=== PATIENT | female | born 1990 | race Hispanic/Latino ===

== ENCOUNTER 2024-02-01 18:19 | Emergency (ER) | payer OTHER ==
[~2024-02-01] VITALS: Ht 170.2 cm; Wt 132.0 kg
[2024-02-01] MEDS: KETOROLAC 15MG/ML VIAL (15MG/ML) IV ONE (20:04)
[2024-02-01 20:29] LABS: BASOPHILS # (AUTO) 0.03 K/uL (0.00-0.20); BASOPHILS % (AUTO) 0.3 % (0.0-5.0); EOSINOPHILS # (AUTO) 0.04 K/uL (0.00-0.70); EOSINOPHILS % (AUTO) 0.4 % (0.0-8.0); HEMATOCRIT 40.2 % (36-48); IMMATURE GRANULOCYTE ABSOLUTE 0.03 K/uL (0-1); LYMPHOCYTES % (AUTO) 18.5 % (21.0-51.0); MEAN CORPUSCULAR HEMOGLOBIN 28.2 pg (27.0-33.0); MEAN CORPUSCULAR HGB CONC 33.8 g/dL (32.0-36.0); MEAN CORPUSCULAR VOLUME 83.4 fL (79-99); MONOCYTES # (AUTO) 0.9 K/uL (0.1-1.0); MONOCYTES % (AUTO) 8.1 % (3.0-13.0); NEUTROPHILS # (AUTO) 7.8 K/uL (1.8-7.7); NEUTROPHILS % (AUTO) 72.4 % (40.0-77.0); PLATELET COUNT (AUTO) 378 K/uL (130-400); RED BLOOD CELL COUNT(AUTO) 4.82 MIL/uL (4.00-5.50); RED CELL DISTRIBUTION WIDTH 12.9 % (11.0-15.5); WHITE BLOOD COUNT (AUTO) 10.8 K/uL (4.8-10.8)
[2024-02-01 20:52] LABS: CREATININE 0.7 mg/dL (0.5-1.0)
[2024-02-01] MEDS ORDERED: IOHEXOL-350 75 ML VIAL IV ONE (21:43)
[2024-02-01] MEDS ORDERED: KETO10TA2 PO (22:56)
[2024-02-01] MEDS: HYDROCODONE/ACETAMINOPHEN 10/325 MG TAB PO ONE (23:01)
[2024-02-01 23:06] VITALS: BP 123/84; PULSE 93; RESP 18; O2SAT 99
== END 2024-02-01 23:06 | disposition home or self-care (01) ==
LOC: EDH 18:19
DX: L02.31 Cutaneous abscess of buttock (principal); E11.9 Type 2 diabetes mellitus without complications
CPT/HCPCS: 99285; 96374; 72193; 80048; 84703; 85025; 83605; 36415; 84145; J1885; Q9967

== ENCOUNTER 2025-01-12 02:52 | Observation (INO) | payer OTHER ==
[~2025-01-12] VITALS: Ht 170.2 cm; Wt 141.1 kg
[~2025-01-12 02:52] MED LIST: KETO10TA2 PO
--- NOTE | 2025-01-12 03:05 | ERN ---
ED Note History of Present Illness Stated Complaint: HIGH BLOOD SUGAR ONE WEEK AGO Chief Complaint: Hyperglycemia Time Seen by MD: 03:01 Time Seen by Midlevel: 03:01 Dictation: The patient is a 34-year-old female with a history of diabetes on rybelsus noncompliant for the last two months who presents to the emergency department with complaints of hyperglycemia. Patient reports she checked her glucose a week ago and was 500. Reports some nausea but no vomiting. Reports nonbloody diarrhea. No other complaints reported. Allergies: Coded Allergies: No Known Drug Allergies (Unverified Allergy, Unknown, 02/01/24) Home Meds Active Scripts Ketorolac Tromethamine (Ketorolac Tromethamine) 10 Mg Tablet, 10 MG PO BID for 5 Days, #10 TAB Prov:PANCHO MCALLISTER 02/01/24 Past Medical History Past Medical History: Diabetes-Type II Surgical History: None RN Note Reviewed/Agreed w/PFSH: Yes Review of System Dictation Constitutional: Negative for fever,chills, and weight loss Eyes: Negative for injury, pain,redness, and discharge ENT: Negative for injury,pain or swelling Cardiovascular: Negative for chest pain, palpitations, and edema Respiratory: Negative for shortness of breath, cough, and wheezing, Abdomen/GI: Negative for abdominal pain, vomiting, and constipation positive for nausea, diarrhea Back: Negative for injury and pain : Negative for injury, bleeding and discharge MS/Extremity: Negative for injury and deformity Skin: Negative for rash, and discoloration Neuro: Negative for headache, weakness, numbness, tingling, and seizure Psych: Negative for suicide ideation, homicidal ideation, and hallucinations Initial Vital Sign VS Vital Signs Date Time Temp Pulse Resp B/P (MAP) Pulse Ox O2 Delivery O2 Flow Rate FiO2 01/12/25 02:53 98.1 67 18 162/107 98 Room Air Physical Exam Dictation Vital Signs reviewed General Appearance: Alert, oriented x 3, no acute distress, well developed, nourished. Head and Face: non-traumatic. Eyes: PERRL, pink conjunctivas, eyelid no trauma, anterior chamber with arcus senilis. Ears: Pinnas intact and no signs of trauma or erythema ear canals clear and no discharge TM no erythema Nose: No discharge, no bleeding. Oropharynx: Mouth normal, tongue pink. pharynx clear,no erythema, tonsils no exudates, no abscesses noted, mucous membrane moist Neck: Supple, non-tender, no thyromegaly, no masses, no JVD, no bruits Breast:Deferred Chest:No tenderness, no crepitus, no paradoxical movement, no retractions Lungs:Clear, well-ventilated, symmetric, no rales, no wheezing, no rhonchi, no stridor, good breath sounds bilaterally Heart: Regular rate, regular rhythm, no murmur, no gallops Vascular: no peripheral edema, Abdomen: Soft, positive bowel sounds, nondistended, no guarding, nontender, no rebound, no masses no hepatomegaly, no splenomegaly, no Gutierrez's s ign, no hernias. Rectal: Deferred Genital: Deferred Neurological: Normal speech, motor function intact, sensory function intact Musculoskeletal: Neck nontender, full range of motion, back nontender, full range of motion, Extremities: nontender, full range of motion Skin: Color pink, dry, no turgor, no rash, no lacerations, no abrasions, no contusions. Lymphatic: Deferred Results (Laboratory/Radiology) Laboratory/Radiology Laboratory Tests Test 01/12/25 03:23 01/12/25 03:59 01/12/25 05:22 Sodium Level 132 mmol/L (136-145) L Potassium Level 4.4 mmol/L (3.5-5.1) Chloride Level 98 mmol/L (101-111) L Carbon Dioxide Level 28 mmol/L (21-32) Blood Urea Nitrogen 7 mg/dL (7-18) Creatinine 0.6 mg/dL (0.5-1.0) Glomerular Filtration Rate Calc 122 mL/min (>90) Random Glucose 301 mg/dL (70-105) H Total Calcium 9.3 mg/dL (8.5-10.1) White Blood Count 7.1 K/uL (4.8-10.8) Red Blood Count 4.32 MIL/uL (4.00-5.50) Hemoglobin 12.4 g/dL (12.0-16.0) Hematocrit 37.0 % (36-48) Mean Corpuscular Volume 85.6 fL (79-99) Mean Corpuscular Hemoglobin 28.7 pg (27.0-33.0) Mean Corpuscular Hemoglobin Concent 33.5 g/dL (32.0-36.0) Red Cell Distribution Width 13.1 % (11.0-15.5) Platelet Count 297 K/uL (130-400) Mean Platelet Volume 8.8 fL (7.5-10.5) Immature Granulocyte % (Auto) 0.1 % (0-1) Neutrophils (%) (Auto) 44.6 % (40.0-77.0) Lymphocytes (%) (Auto) 46.2 % (21.0-51.0) Monocytes (%) (Auto) 7.4 % (3.0-13.0) Eosinophils (%) (Auto) 1.4 % (0.0-8.0) Basophils (%) (Auto) 0.3 % (0.0-5.0) Neutrophils # (Auto) 3.1 K/uL (1.8-7.7) Lymphocytes # (Auto) 3.3 K/uL (1.0-4.8) Monocytes # (Auto) 0.5 K/uL (0.1-1.0) Eosinophils # (Auto) 0.10 K/uL (0.00-0.70) Basophils # (Auto) 0.02 K/uL (0.00-0.20) Absolute Immature Granulocyte (auto 0.01 K/uL (0-1) Nucleated Red Blood Cells 0.0 % (0.0-0.19) Whole Blood Glucose 253 MG/DL (70-110) H Labs Reviewed?: Yes ED Course ED Course Orders Procedure Category Date Status Time 0.9%Nacl 1000ml (Ns PHA 01/12/25 Complete 1000ml) 03:30 Basic Metabolic Panel LAB 01/12/25 Complete 03:01 Urinalysis Profile LAB 01/12/25 Logged 03:02 ,Urine Test LAB 01/12/25 Logged 03:02 Beta-Hydroxy Butyrate LAB 01/12/25 In Process 03:08 Insulin Regular, PHA 01/12/25 Complete Human 3ml (Humulin R 04:00 Cbc With Differential LAB 01/12/25 Complete 03:51 Bedside Glucose CPOE 01/12/25 Transmitted Fingerstick 04:43 Admit Orders ADM 01/12/25 Transmitted 05:35 Insulin Regular, PHA 01/12/25 Logged Human 3ml (Humulin R 07:30 0.9%Nacl 1000ml (Ns PHA 01/12/25 Logged 1000ml) 06:00 Acetaminophen 325 Tab PHA 01/12/25 Logged (Tylenol 325mg Tab 06:00 Acetaminophen 325 Tab PHA 01/12/25 Logged (Tylenol 325mg Tab 06:00 Ondansetron 4mg Inj PHA 01/12/25 Logged (Zofran 4mg Inj) 06:00 Cbc W Manual Diff LAB 01/12/25 Transmitted 05:35 Basic Metabolic Panel LAB 01/12/25 Transmitted 05:35 Magnesium LAB 01/12/25 Transmitted 05:35 Hemoglobin A1c LAB 01/12/25 Transmitted 05:35 Endocrinology Consult CONPHYSVC 01/12/25 Transmitted 08:00 Consistent Carb DIET 01/12/25 Transmitted Breakfast Current Medications Medications (Trade) Dose Ordered Sig/Luiz Route PRN Reason Start Time Stop Time Status Last Admin Dose Admin Acetaminophen (TYLenol 325MG TAB) 650 mg Q4H PRN PO TEMPERATURE GREATER THAN 101.5 01/12/25 06:00 02/11/25 05:59 UNV Acetaminophen (TYLenol 325MG TAB) 650 mg Q6H PRN PO MILD PAIN (1-3) 01/12/25 06:00 02/11/25 05:59 UNV Insulin Human Regular (humuLIN R 100 UNIT/ML 3ML) 20 unit ONCE ONCE SQ 01/12/25 04:00 01/12/25 04:01 DC 01/12/25 04:25 Insulin Human Regular (humuLIN R 100 UNIT/ML 3ML) INSULIN SLIDING SCAL... ACHS SQ 01/12/25 07:30 02/11/25 07:29 UNV Ondansetron HCl (zoFRAN 4MG INJ) 4 mg Q6H PRN IVP NAUSEA/VOMITING 01/12/25 06:00 02/11/25 05:59 UNV Sodium Chloride 1,000 ml @ 0 mls/hr ONCE ONCE IV 01/12/25 03:30 01/12/25 03:31 DC 01/12/25 03:07 Sodium Chloride 1,000 ml @ 75 mls/hr [id number] IV 01/12/25 06:00 02/11/25 05:59 UNV Vital Signs Date Time Temp Pulse Resp B/P (MAP) Pulse Ox O2 Delivery O2 Flow Rate FiO2 6/2/25 02:53 98.1 67 18 162/107 98 Room Air Medical Decision Making [facility] The patient is a 34-year-old female with a history of diabetes on rybelsus noncompliant for the last two months who presents to the emergency department with complaints of hyperglycemia. Patient reports she checked her glucose a week ago and was 500. Reports some nausea but no vomiting. Reports nonbloody diarrhea. No other complaints reported. Patient tells me there Rybelsus had too many side effects that she could not tolerate. She plans to switch over to Mounjaro note. Her blood glucose measured here was 300 I gave her 20 units of subcutaneous insulin and her blood glucose dropped To 250 only. 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 I have called the hospitalist and he has agreed. DX & DISP Disposition: Inpatient Departure Condition: Stable Referrals: MASOOD STARKS MD (PCP) ANNY CRENSHAW Jan 12, 2025 03:05 NAHUM AYOUB MD Jan 12, 2025 05:53
[2025-01-12] MEDS: 0.9%NACL 1000ML 1,000 ML IV ONE (03:07)
[2025-01-12 03:47] LABS: CREATININE 0.6 mg/dL (0.5-1.0); POTASSIUM 4.4 mmol/L (3.5-5.1)
[2025-01-12 04:04] LABS: BASOPHILS # (AUTO) 0.02 K/uL (0.00-0.20); BASOPHILS % (AUTO) 0.3 % (0.0-5.0); EOSINOPHILS % (AUTO) 1.4 % (0.0-8.0); IMMATURE GRANULOCYTE ABSOLUTE 0.01 K/uL (0-1); LYMPHOCYTES # (AUTO) 3.3 K/uL (1.0-4.8); LYMPHOCYTES % (AUTO) 46.2 % (21.0-51.0); MEAN CORPUSCULAR HEMOGLOBIN 28.7 pg (27.0-33.0); MEAN CORPUSCULAR HGB CONC 33.5 g/dL (32.0-36.0); MEAN CORPUSCULAR VOLUME 85.6 fL (79-99); MONOCYTES # (AUTO) 0.5 K/uL (0.1-1.0); MONOCYTES % (AUTO) 7.4 % (3.0-13.0); NEUTROPHILS # (AUTO) 3.1 K/uL (1.8-7.7); NEUTROPHILS % (AUTO) 44.6 % (40.0-77.0); PLATELET COUNT (AUTO) 297 K/uL (130-400); RED BLOOD CELL COUNT(AUTO) 4.32 MIL/uL (4.00-5.50); RED CELL DISTRIBUTION WIDTH 13.1 % (11.0-15.5); WHITE BLOOD COUNT (AUTO) 7.1 K/uL (4.8-10.8)
[2025-01-12] MEDS: INSULIN humuLIN R 100 UNIT/ML 3ML SQ ONE (04:25)
[2025-01-12] MEDS ORDERED: ondanSETRON 4MG INJ IVP PRN (06:00)
[2025-01-12] MEDS ORDERED: acetaMINOPHEN 325 MG TAB PO PRN ×2 (06:00)
[2025-01-12 06:07] LABS: HEMOGLOBIN A1C 10.4 % (4.0-6.0)
[2025-01-12 06:26] LABS: APPEARANCE,URINE CLEAR (CLEAR); BILIRUBIN,URINE NEGATIVE (NEGATIVE); COLOR,URINE COLORLESS (YELLOW); GLUCOSE, URINE (UA) TRACE mg/dL (NEGATIVE); KETONES,URINE NEGATIVE (NEGATIVE); LEUKOCYTE ESTERASE ,URINE NEGATIVE Leu/uL (NEGATIVE); NITRATE,URINE NEGATIVE (NEGATIVE); OCCULT BLOOD,URINE NEGATIVE (NEGATIVE); PROTEIN,URINE NEGATIVE (NEGATIVE); UROBILINOGEN,URINE 0.2 mg/dL (0.2-1.0)
[2025-01-12 06:27] LABS: ADD UA MICROSCOPIC YES; SQUAMOUS EPITHELIAL CELL,UR RARE /HPF (0-2); WBC,URINE 0-1 /HPF (0-1)
[2025-01-12 06:28] LABS: HCG,QUALITATIVE URINE NEGATIVE (NEGATIVE)
--- NOTE | 2025-01-12 06:32 | NUR ---
NURSE BUSY WITH PATIENT AT THIS TIME CALLED NURSE FRANKI 2 EXTENSION 1641, AND 1370, NURSE IS BUSY WITH A PATIENT AT THIS TIME, WILL RETURN MY CALL WHEN AVAILABLE, WILL CONT TO MONITOR
[2025-01-12] MEDS: 0.9%NACL 1000ML 1,000 ML IV SCH (06:38)
[2025-01-12] MEDS: INSULIN humuLIN R 100 UNIT/ML 3ML SQ SCH (06:46)
[2025-01-12 06:54] LABS: BASOPHILS # (AUTO) 0.02 K/uL (0.00-0.20); BASOPHILS % (AUTO) 0.3 % (0.0-5.0); EOSINOPHILS # (AUTO) 0.11 K/uL (0.00-0.70); EOSINOPHILS % (AUTO) 1.6 % (0.0-8.0); HEMATOCRIT 36.7 % (36-48); IMMATURE GRANULOCYTE ABSOLUTE 0.02 K/uL (0-1); LYMPHOCYTES # (AUTO) 3.2 K/uL (1.0-4.8); LYMPHOCYTES % (AUTO) 44.7 % (21.0-51.0); MEAN CORPUSCULAR HEMOGLOBIN 28.3 pg (27.0-33.0); MEAN CORPUSCULAR HGB CONC 33.5 g/dL (32.0-36.0); MEAN CORPUSCULAR VOLUME 84.4 fL (79-99); MONOCYTES # (AUTO) 0.4 K/uL (0.1-1.0); NEUTROPHILS # (AUTO) 3.3 K/uL (1.8-7.7); NEUTROPHILS % (AUTO) 47.1 % (40.0-77.0); PLATELET COUNT (AUTO) 329 K/uL (130-400); RED BLOOD CELL COUNT(AUTO) 4.35 MIL/uL (4.00-5.50); RED CELL DISTRIBUTION WIDTH 13.2 % (11.0-15.5)
[2025-01-12 07:10] LABS: CREATININE 0.6 mg/dL (0.5-1.0); MAGNESIUM 1.7 mg/dL (1.80-2.40); POTASSIUM 3.8 mmol/L (3.5-5.1)
[2025-01-12 07:16] VITALS: BP 138/91; PULSE 72; RESP 12; TEMP 97.7
[2025-01-12 09:24] VITALS: O2SAT 97
[2025-01-12 11:28] VITALS: BP 115/64; PULSE 74; RESP 16; TEMP 98.1
--- NOTE | 2025-01-12 15:07 | NUR ---
DCP: HOME Pt lives in an apt with her Sachi Leo [phone] and a roommate. Pt reports having had difficulty affording rent, utilities and food in the last 12 months. Community resources given. Pt states assists with ADLS when needed, has no provider HH or HD services. PCP is rosa Huang and uses [facility] for rx. DCP is home Addendum: 01/12/25 at 1507 by SARA JONES SS Amended: Links added.
[2025-01-12 15:17] VITALS: BP 118/66; PULSE 73; RESP 16; TEMP 98.1
[2025-01-12 20:00] VITALS: BP 135/79; PULSE 82; RESP 18; TEMP 98.7
[2025-01-12] MEDS ORDERED: ESCI20TA38 PO (20:27)
[2025-01-12] MEDS ORDERED: OMEP40CA21 PO (20:27)
[2025-01-13] VITALS (7 sets, daily range): BP systolic 121–150; BP diastolic 75–92; PULSE 75–86; RESP 16–20; TEMP 97.9–98.4; O2SAT 96
--- NOTE | 2025-01-13 09:11 | HP ---
DATE OF SERVICE: 01/12/2025 HISTORY AND PHYSICAL PRESENTING COMPLAINT: Elevated blood glucose, nausea, but no vomiting. HISTORY OF PRESENT ILLNESS: This is a 34-year-old female with history of diabetes mellitus and morbid obesity, who presented to the hospital with elevated blood glucose. The patient checked her glucose and found to have blood sugar to be greater than 500. The patient came to the Emergency Room. Has some nausea, but no vomiting, no diarrhea. Denies abdominal pain. The patient denies fever or chills. Blood sugar in the emergency room was 304. No sick contact or recent travel. The patient claims that she takes Rybesus. The patient yet to follow up with her primary care physician since last year. Seems to not be compliant. Hemoglobin A1c is elevated at 10.4. PAST MEDICAL HISTORY: * Diabetes mellitus. * Obesity. PAST SURGICAL HISTORY: Denies. ALLERGIES: No known drug allergies. HOME MEDICATIONS: Rybesus. SOCIAL HISTORY: Denies alcohol, tobacco or illicit drug use. FAMILY HISTORY: Positive for diabetes mellitus. REVIEW OF SYSTEMS: Greater than 10 systems were reviewed and negative except as documented above. PHYSICAL EXAMINATION: GENERAL: A young female, awake, not in distress. VITAL SIGNS: Temperature 98.1, pulse 74, respiratory rate 16, BP 115/64. EYES: No icterus. Pupils are equal and reactive. HENT: No oral thrush seen. Moist oral mucosa. NECK: Supple. No JVD or thyromegaly. LUNGS: Good air entry. No rales. No rhonchi. CARDIOVASCULAR: S1 and S2 regular. No murmur heard. ABDOMEN: Obese, soft, nontender. Bowel sounds are present. CENTRAL NERVOUS SYSTEM: Awake, alert and oriented x 3. No focal deficits. SKIN: No rashes. No itchiness. LYMPHATIC: No peripheral lymphadenopathy. BACK: No deformity. No pressure ulcer. HEMATOLOGIC: No bleeding or petechial lesions seen. MUSCULOSKELETAL: No joint swelling, erythema or tenderness. LABORATORY DATA: Hemoglobin A1c 10.4, , sodium 139, potassium 3.8, BUN 5, creatinine of 0.6, bicarbonate of 31. WBC 7.0, hemoglobin 12.3, platelets 239. Urinalysis is negative. ASSESSMENT: A 34-year-old female with multiple problems including: * Nonketotic hyperglycemia. * Dehydration. * Morbid obesity. * Medical noncompliant. PLAN: * The patient is admitted to medical floor. * The patient has been placed on IV fluids. * Insulin sliding scale. * Monitor electrolytes and correct as needed. * Zofran as needed for nausea, vomiting. * Tylenol as needed for pain or fever. * The patient is advised to be compliant with medical management. * Endocrinology evaluation. TID: [id number] RECEIPT: [id number] [facility]
[2025-01-13 12:38] LABS: BASOPHILS # (AUTO) 0.02 K/uL (0.00-0.20); BASOPHILS % (AUTO) 0.3 % (0.0-5.0); EOSINOPHILS # (AUTO) 0.08 K/uL (0.00-0.70); EOSINOPHILS % (AUTO) 1.3 % (0.0-8.0); HEMATOCRIT 34.9 % (36-48); IMMATURE GRANULOCYTE ABSOLUTE 0.01 K/uL (0-1); LYMPHOCYTES # (AUTO) 2.6 K/uL (1.0-4.8); LYMPHOCYTES % (AUTO) 42.4 % (21.0-51.0); MEAN CORPUSCULAR HEMOGLOBIN 28.4 pg (27.0-33.0); MEAN CORPUSCULAR HGB CONC 33.5 g/dL (32.0-36.0); MEAN CORPUSCULAR VOLUME 84.7 fL (79-99); MONOCYTES # (AUTO) 0.4 K/uL (0.1-1.0); MONOCYTES % (AUTO) 5.6 % (3.0-13.0); NEUTROPHILS # (AUTO) 3.1 K/uL (1.8-7.7); NEUTROPHILS % (AUTO) 50.2 % (40.0-77.0); PLATELET COUNT (AUTO) 298 K/uL (130-400); RED BLOOD CELL COUNT(AUTO) 4.12 MIL/uL (4.00-5.50); RED CELL DISTRIBUTION WIDTH 13.4 % (11.0-15.5); WHITE BLOOD COUNT (AUTO) 6.2 K/uL (4.8-10.8)
[2025-01-13 12:55] LABS: CREATININE 0.6 mg/dL (0.5-1.0); MAGNESIUM 1.7 mg/dL (1.80-2.40); POTASSIUM 3.8 mmol/L (3.5-5.1)
[2025-01-13] MEDS: MAGNESIUM 4GM PREMIX 100ML 100 ML IV ONE (13:43)
--- NOTE | 2025-01-13 23:32 | PN ---
INFECTIOUS DISEASE PROGRESS NOTE Date of Service: Jan 13, 2025 SUBJECTIVE: This is a 34-year-old female patient who was seen and examined at bedside in room 317. Patient is awake, alert and oriented x3. Glucose readings this morning have been in the 200s, we will observe patient for one more day and discharge patient marrow morning so that she can follow up with Dr. Hurst as a walk-in so that he can continue managing her diabetes. No reports of nausea or vomiting. PHYSICAL EXAM EYES: Anicteric. Pupils equal and reactive. HENT: No oral thrush seen, moist Oral mucosa NECK: Supple, no JVD or thyromegaly. LUNGS: Good air entry. No rales, no rhonchi. CARDIOVASCULAR: S1, S2 regular. No murmur heard. ABDOMEN: Soft, non tender, bowel sounds present, no organomegaly CENTRAL NERVOUS SYSTEM: Awake, alert, oriented x 3. SKIN: No rashes, no swelling. LYMPHATICS: No peripheral lymphadenopathy MUSCULOSKELETAL: No joint swelling, erythema or tenderness. EXTREMITIES: No cyanosis or clubbing BACK: No deformity, no pressure ulcer. GENITOURINARY: No dysuria or hematuria Vital Sign (Last 12 Hours) 01/13/25 01/13/25 01/13/25 01/13/25 12:00 16:00 20:00 22:54 Temp 97.9 98.1 98.4 Pulse 76 86 84 Resp 17 17 18 B/P (MAP) 150/92 131/88 122/75 Pulse Ox 97 97 96 O2 Delivery Room Air Room Air Room Air Room Air* O2 Flow Rate 0 FiO2 21 Intake & Output (last 24hrs) 01/12/25 01/12/25 01/13/25 15:00 23:00 07:00 Intake Total 360 ml 240 ml Balance 360 ml 240 ml LABS: Laboratory: Test 01/13/25 19:20 01/13/25 18:30 01/13/25 12:32 01/12/25 06:10 Range/Units Whole Blood Glucose 292 H 70-110 MG/DL Bedside Glucose Comment Notified Nurse White Blood Count 6.2 4.8-10.8 K/uL Red Blood Count 4.12 4.00-5.50 MIL/uL Hemoglobin 11.7 L 12.0-16.0 g/dL Hematocrit 34.9 L 36-48 % Mean Corpuscular Volume 84.7 79-99 fL Mean Corpuscular Hemoglobin 28.4 27.0-33.0 pg Mean Corpuscular Hemoglobin Concent 33.5 32.0-36.0 g/dL Red Cell Distribution Width 13.4 11.0-15.5 % Platelet Count 298 130-400 K/uL Mean Platelet Volume 8.9 7.5-10.5 fL Immature Granulocyte % (Auto) 0.2 0-1 % Neutrophils (%) (Auto) 50.2 40.0-77.0 % Lymphocytes (%) (Auto) 42.4 21.0-51.0 % Monocytes (%) (Auto) 5.6 3.0-13.0 % Eosinophils (%) (Auto) 1.3 0.0-8.0 % Basophils (%) (Auto) 0.3 0.0-5.0 % Neutrophils # (Auto) 3.1 1.8-7.7 K/uL Lymphocytes # (Auto) 2.6 1.0-4.8 K/uL Monocytes # (Auto) 0.4 0.1-1.0 K/uL Eosinophils # (Auto) 0.08 0.00-0.70 K/uL Basophils # (Auto) 0.02 0.00-0.20 K/uL Absolute Immature Granulocyte (auto 0.01 0-1 K/uL Nucleated Red Blood Cells 0.0 0.0-0.19 % Sodium Level 134 L 136-145 mmol/L Potassium Level 3.8 3.5-5.1 mmol/L Chloride Level 102 101-111 mmol/L Carbon Dioxide Level 26 21-32 mmol/L Blood Urea Nitrogen 8 7-18 mg/dL Creatinine 0.6 0.5-1.0 mg/dL Glomerular Filtration Rate Calc 122 >90 mL/min Random Glucose 306 H 70-105 mg/dL Total Calcium 8.6 8.5-10.1 mg/dL Magnesium Level 1.70 L 1.80-2.40 mg/dL Urine Color COLORLESS YELLOW Urine Appearance CLEAR CLEAR Urine pH 6.0 5.0-8.0 Urine Specific [place] 1.005 1.001-1.031 Urine Protein NEGATIVE NEGATIVE mg/dL Urine Glucose (UA) TRACE H NEGATIVE mg/dL Urine Ketones NEGATIVE NEGATIVE mg/dL Urine Occult Blood NEGATIVE NEGATIVE Urine Nitrate NEGATIVE NEGATIVE Urine Bilirubin NEGATIVE NEGATIVE mg/dL Urine Urobilinogen 0.2 0.2-1.0 mg/dL Urine Leukocyte Esterase NEGATIVE NEGATIVE Tamela/uL Urine RBC None 0-1 /HPF Urine WBC 0-1 0-1 /HPF Urine Squamous Epithelial Cells RARE 0-2 /HPF Urine Bacteria None None Seen /HPF Urine HCG, Qualitative NEGATIVE NEGATIVE Test 01/12/25 03:59 Range/Units Hemoglobin A1c 10.4 H 4.0-6.0 % Estimated Average Glucose (eAG) 252 H 70-126 mg/dL ASSESSMENT: Nonketotic hyperglycemia. Diabetes mellitus. Morbid obesity. PLAN: Continue with Glucometer checks a.c./hs and cover with insulin per sliding scale protocol. Continue with IV fluids. Patient will be discharged tomorrow morning and she is to go to Dr. Hurst's office as walk-in. This case was reviewed and discussed with my supervising physician and the above assessment and plan was formulated and agreed upon. ATTESTATION BY PHYSICIAN I have seen and examined the patient. I reviewed the documentation, medical decision making, and treatment plan as noted by the mid-level provider above. I agree with the findings and plan of care. CINTHYA LEWIS MD, MIRTA L [facility] Jan 13, 2025 23:32
[2025-01-14] VITALS: BP 155/89; PULSE 90; RESP 18; TEMP 98.7
[2025-01-14 04:00] VITALS: BP 126/81; PULSE 74; RESP 20; TEMP 97.7
[2025-01-14 08:00] VITALS: BP 140/93; PULSE 78; RESP 16; TEMP 97.8
[2025-01-14] MEDS: ESCITALOPRAM OXALATE PO SCH (08:26)
[2025-01-14] MEDS: PANTOPrazole 40 MG TAB DR PO SCH (08:27)
--- NOTE | 2025-01-14 11:49 | DS ---
Discharge Summary Hospital Course This is a 34-year-old female patient with past medical history of diabetes mellitus and morbid obesity, who presented to the hospital with elevated blood glucose. The patient checked her glucose and found to have blood sugar to be greater than 500 and the decided to come to the Emergency Room evaluation. Reported some nausea, but no vomiting, no diarrhea. Denies abdominal pain. The patient denies fever or chills. Blood sugar in the emergency room was 304. No sick contact or recent travel. The patient claims that she takes rybelsus but she stopped taking it due to side effects of nausea and vomiting. The patient has not follow up with her primary care physician since last year. Seems to be noncompliant. Hemoglobin A1c is elevated at 10.4. Dr. Lewis spoke to Dr. Hurst and will see patient as a walk -in this morning. Will discharge patient this morning and she was made aware to go straight to Dr. Hurst's office once discharged from the hospital. FINAL DISCHARGE DIAGNOSIS: Nonketotic hyperglycemia. Diabetes mellitus. Morbid obesity. PLAN: Discharge patient this morning and she is to go to Dr. Hurst's office today as a walk in after discharge from the hospital so that he can continue managing the diabetes. Continue same home medications. This case was reviewed and discussed with my supervising physician and the above assessment and plan was formulated and agreed upon. ATTESTATION BY PHYSICIAN I have seen and examined the patient. I reviewed the documentation, medical decision making, and treatment plan as noted by the mid-level provider above. I agree with the findings and plan of care. CINTHYA LEWIS MD, MIRTA L [facility] Jan 14, 2025 11:49
--- NOTE | 2025-01-14 13:32 | NUR ---
Pt d/c before RD could assess. Addendum: 01/14/25 at [address] Amended: Links added.
--- NOTE | 2025-01-14 14:15 | NUR ---
DC AT 1100 PIV DC'D AT 1100. DISCHARGE INSTRUCTIONS EXPLAINED TO PT AND FAMILY. PT WILL BE FOLLOWING UP WITH DR STARKS. ALL QUESTIONS ANSWERED AT THIS TIME.
== END 2025-01-14 11:30 | disposition home or self-care (01) ==
LOC: EDH 02:52 → 3CH 02:53 → UNDOADMOB 06:55
PROVIDERS: ADMIT Internal Medicine Infectious Disease; ATTEND Internal Medicine Infectious Disease
DX: E11.65 Type 2 diabetes mellitus with hyperglycemia (principal); E66.01 Morbid (severe) obesity due to excess calories; E86.0 Dehydration; Z91.199 Patient's noncompliance with other medical treatment and regimen due to unspecified reason; Z79.899 Other long term (current) drug therapy; Z68.42 Body mass index [BMI] 45.0-49.9, adult
CPT/HCPCS: 96372 ×3; 96361 ×2; 99284; 83036; 83735 ×2; 80048 ×3; 85025 ×3; 82948 ×11; 82010; 81001; 81025; 36415 ×2; 96365; 96366; G0378 ×53; J7030 ×2; J1815 ×10; J3475

== ENCOUNTER 2025-02-22 07:36 | Emergency (ER) | payer OTHER ==
[~2025-02-22] VITALS: Ht 167.6 cm; Wt 131.5 kg
[~2025-02-22 07:36] MED LIST changes: +ESCI20TA38 PO; -KETO10TA2 PO; +OMEP40CA21 PO
[2025-02-22 08:04] LABS: IMMATURE GRANULOCYTE ABSOLUTE 0.02 K/uL (0-1); NUCLEATED RED BLOOD CELLS 0.0 % (0.0-0.19); PLATELET COUNT (AUTO) 383 K/uL (130-400); RED BLOOD CELL COUNT(AUTO) 4.62 MIL/uL (4.00-5.50); RED CELL DISTRIBUTION WIDTH 13.8 % (11.0-15.5); WHITE BLOOD COUNT (AUTO) 7.5 K/uL (4.8-10.8)
[2025-02-22 08:14] LABS: ADD UA MICROSCOPIC YES; APPEARANCE,URINE CLEAR (CLEAR); GLUCOSE, URINE (UA) >=1000 mg/dL (NEGATIVE); HCG,QUALITATIVE URINE NEGATIVE (NEGATIVE); LEUKOCYTE ESTERASE ,URINE NEGATIVE Leu/uL (NEGATIVE); NITRATE,URINE NEGATIVE (NEGATIVE); OCCULT BLOOD,URINE NEGATIVE (NEGATIVE)
[2025-02-22 08:16] LABS: SQUAMOUS EPITHELIAL CELL,UR RARE /HPF (0-2)
--- NOTE | 2025-02-22 08:19 | ERN ---
General Chief Complaint: Abdominal Pain Stated Complaint: ABD PAIN Time Seen by MD: 07:42 Source: patient History of Present Illness Initial Comments Patient is a 35-year-old female coming in complaining of abdominal pain. Per patient this pain has been ongoing for several days. She states that initially with the pain started she was eating pork rinds. States that this morning she attempted to eat pork rinds again and the pain presented again. Allergies: Coded Allergies: No Known Drug Allergies (Unverified Allergy, Unknown, 02/01/24) Home Meds Reported Medications Omeprazole (Omeprazole) 40 Mg Capsule.dr, 1 CAP PO DAILY 01/12/25 Escitalopram Oxalate (Escitalopram Oxalate) 20 Mg Tablet, 1 TAB PO DAILY 01/12/25 Past Medical History Past Medical History: Anxiety, Diabetes-Type II Past Surgical History: None ROS Dictation CONSTITUTIONAL: No chills, no fever, no weakness, no diaphoresis, no malaise. HEAD/FACE: No signs of trauma. EENT: No eye pain, no blurred vision, no tearing, no double vision, no ear pain, no ear discharge, no nose pain, no nasal congestion, no throat pain, no throat swelling, no mouth pain. RESPIRATORY: No cough, no orthopnea, no SOB, no stridor, no wheezing. CARDIOVASCULAR: No chest pain, no edema, no palpitations, no syncope. GASTROINTESTINAL/ABDOMINAL: abdominal pain, no constipation, no diarrhea, no nausea, no vomiting. GENITOURINARY: No abnormal discharge, no dysuria, no frequent urination, no hematuria. No complaints of pain in the genitals. MUSCULOSKELETAL: No back pain, no gout, no joint pain, no joint swelling, no muscle pain, no muscle stiffness, no neck pain. INTEGUMENTARY: No change in color, no change in hair/nails, no dryness, no lesion, no lumps, no rash. NEUROLOGICAL/PSYCH: No anxiety, not depressed, no emotional problem, no headache, no numbness, no pre-existing deficit, no history of seizures, no tremors, no weakness. HEMATOLOGIC/LYMPHATIC: Not anemic, no history of blood clots, no apparent bleeding, no bruising, glands not swollen. All Systems Negative, Except as Noted. Physical Exam Physical Exam Dictation VITAL SIGNS: Reviewed. GENERAL APPEARANCE: Alert, oriented x3, no acute distress, obese. HEAD AND FACE: Non-traumatic. EYES: PERRL, pink conjunctivas, eyelid no trauma, anterior chamber clear. EARS: Pinnas intact and no signs of trauma or erythema. Ear canals clear and no discharge. TMs no erythema. NOSE: No discharge, no bleeding. OROPHARYNX: Mouth normal, teeth no caries, tongue pink. Pharynx clear, no erythema. Tonsils no exudates, no abscesses noted. Mucous membrane moist. NECK: Supple, non-tender, no thyromegaly, no masses, no JVD, no bruits. BREAST: Deferred. CHEST: No tenderness, no crepitus, no paradoxical movement, no retractions. LUNGS: Clear, well-ventilated, symmetric, no rales, no wheezing, no rhonchi, no stridor, good breath sounds bilaterally. HEART: Regular rate, regular rhythm, no murmur, no gallops. VASCULAR: No peripheral edema. ABDOMEN: Soft, positive bowel sounds, nondistended, no guarding, tender, no rebound, no masses no hepatomegaly, no splenomegaly, no Gutierrez's sign, no hernias. RECTAL: Deferred. GENITAL: Deferred. NEUROLOGICAL: Normal speech, gross motor function intact, gross sensory function intact. MUSCULOSKELETAL: Neck nontender, full range of motion, back nontender, full range of motion. EXTREMITIES: Nontender, full range of motion. SKIN: Color pink, dry, no turgor, no rash, no lacerations, no abrasions, no contusions. LYMPHATICS: Deferred. Results Laboratory and Microbiology Lab and Micro Result Laboratory Tests Test 02/22/25 07:55 White Blood Count 7.5 K/uL (4.8-10.8) Red Blood Count 4.62 MIL/uL (4.00-5.50) Hemoglobin 12.9 g/dL (12.0-16.0) Hematocrit 40.2 % (36-48) Mean Corpuscular Volume 87.0 fL (79-99) Mean Corpuscular Hemoglobin 27.9 pg (27.0-33.0) Mean Corpuscular Hemoglobin Concent 32.1 g/dL (32.0-36.0) Red Cell Distribution Width 13.8 % (11.0-15.5) Platelet Count 383 K/uL (130-400) Mean Platelet Volume 8.5 fL (7.5-10.5) Immature Granulocyte % (Auto) 0.3 % (0-1) Neutrophils (%) (Auto) 55.5 % (40.0-77.0) Lymphocytes (%) (Auto) 36.4 % (21.0-51.0) Monocytes (%) (Auto) 5.4 % (3.0-13.0) Eosinophils (%) (Auto) 2.3 % (0.0-8.0) Basophils (%) (Auto) 0.1 % (0.0-5.0) Neutrophils # (Auto) 4.2 K/uL (1.8-7.7) Lymphocytes # (Auto) 2.7 K/uL (1.0-4.8) Monocytes # (Auto) 0.4 K/uL (0.1-1.0) Eosinophils # (Auto) 0.17 K/uL (0.00-0.70) Basophils # (Auto) 0.01 K/uL (0.00-0.20) Absolute Immature Granulocyte (auto 0.02 K/uL (0-1) Nucleated Red Blood Cells 0.0 % (0.0-0.19) Urine Color LIGHT-YELLOW (YELLOW) Urine Appearance CLEAR (CLEAR) Urine pH 5.5 (5.0-8.0) Urine Specific Harshaw 1.013 (1.001-1.031) Urine Protein NEGATIVE mg/dL (NEGATIVE) Urine Glucose (UA) >=1000 mg/dL (NEGATIVE) H Urine Ketones NEGATIVE mg/dL (NEGATIVE) Urine Occult Blood NEGATIVE (NEGATIVE) Urine Nitrate NEGATIVE (NEGATIVE) Urine Bilirubin NEGATIVE mg/dL (NEGATIVE) Urine Urobilinogen 0.2 mg/dL (0.2-1.0) Urine Leukocyte Esterase NEGATIVE Tamela/uL Urine RBC 0-1 /HPF (0-1) Urine WBC 2-5 /HPF (0-1) H Urine Squamous Epithelial Cells RARE /HPF (0-2) Urine Bacteria RARE /HPF (None Seen) Urine HCG, Qualitative NEGATIVE (NEGATIVE) Sodium Level 140 mmol/L (136-145) Potassium Level 3.8 mmol/L (3.5-5.1) Chloride Level 104 mmol/L (101-111) Carbon Dioxide Level 29 mmol/L (21-32) Blood Urea Nitrogen 14 mg/dL (7-18) Creatinine 0.6 mg/dL (0.5-1.0) Glomerular Filtration Rate Calc 122 mL/min (>90) Random Glucose 107 mg/dL (70-105) H Total Calcium 9.3 mg/dL (8.5-10.1) Total Bilirubin 0.4 mg/dL (0.2-1.0) Aspartate Amino Transf (AST/SGOT) 11 U/L (10-37) Alanine Aminotransferase (ALT/SGPT) 23 U/L (12-78) Alkaline Phosphatase 55 U/L (50-136) Total Protein 8.2 g/dL (6.0-8.3) Albumin 4.0 g/dL (3.5-5.0) Lipase 49 U/L (16-77) Labs Reviewed?: Yes EKG/XRAY/US/CT/MRI CT Scan Comment IMAGING REPORT Signed PATIENT: MOHSEN CRUZ MR#: [id number] : 1990 SEX: F AGE: 34 LOCATION: [facility] ORDER 8 STATUS: [facility] REPORT#: [id number] SERVICE [id number] REASON: ABD PAIN ORDERING PHYSICIAN: MALLORIE BEATTY MD PROCEDURE: ABD PEL WO - CT ABDOMEN/PELVIS W/O CONTRAST EXAM: CT Abdomen and Pelvis Without IV contrast CLINICAL HISTORY: ABD PAIN TECHNIQUE: Axial computed tomography images of the abdomen and pelvis without intravenous contrast. CONTRAST: No IV contrast. COMPARISON: None provided. FINDINGS: LUNG BASES: The lung bases appear clear. No pleural effusions are seen. LIVER: Unremarkable. GALLBLADDER AND BILE DUCTS: The gallbladder appears within normal limits. No radioopaque gallstones are seen. No biliary ductal dilatation is evident. PANCREAS: Unremarkable. SPLEEN: Unremarkable. ADRENAL GLANDS: Unremarkable. KIDNEYS, URETERS, AND BLADDER: The kidneys appear within normal limits. There is no hydronephrosis or hydroureter. No urinary calculi are seen. STOMACH AND BOWEL: Unremarkable appearance of the stomach and bowel. No evidence of bowel obstruction. No evidence suggesting enteritis or colitis. APPENDIX: Normal appendix. PERITONEUM: No free fluid. No free air. LYMPH NODES: No lymphadenopathy is evident. REPRODUCTIVE: Unremarkable as visualized. VASCULATURE: No evidence of abdominal aortic aneurysm. BONES: No aggressive appearing osseous lesion. No acute osseous pathology evident. IMPRESSION: No acute intra-abdominal or pelvic abnormality. /[place] DICTATED BY: NICOLA WOMACK MD DATE: 02/22/251128 ELECTRONICALLY SIGNED BY: NICOLA WOMACK MD DATE: 02/22/251128 MDM MDM: Differential diagnosis: GASTRITIS, GERD, Rationale: Tests considered and ordered secondary to shared decision making include: Previous outside records reviewed: Old ER visits. Risk of complication and/or morbidity or mortality of patient management: None Medications-Per medication reconciliation Need for hospitalization: Patient does not meet criteria for hospitalization. PATIENT IS A 35-YEAR-OLD FEMALE COMING IN COMPLAINING OF ABDOMINAL PAIN. LABORATORY WORKUP NEGATIVE FOR ACUTE FINDINGS. BECAUSE PATIENT WAS IN SO MUCH PAIN CT HAS A BEE ORDER TO RULE OUT ANY INTRA-ABDOMINAL PATHOLOGY WHICH WAS RULED OUT. PATIENT WE WILL BE DISCHARGED WITH DIAGNOSIS OF GASTRITIS POSSIBLE PEPTIC ULCER DISEASE. PATIENT WAS EDUCATED ON PROPER FOODS TO EAT AND FOODS TO AVOID IN ORDER TO HELP WITH THE GASTRITIS. ALSO ADVISED HER APPROPRIATE FOLLOW UP WITH PCP. ED Course Orders Procedure Category Date Status Time Cbc With Differential LAB 02/22/25 Complete 07:43 Comprehensive LAB 02/22/25 Complete Metabolic Panel 07:43 ,Urine Test LAB 02/22/25 Complete 07:43 Urinalysis Profile LAB 02/22/25 Complete 07:43 Lactated Ringers PHA 02/22/25 Complete 1000ml (Lactated 08:00 Ondansetron 4mg Inj PHA 02/22/25 Complete (Zofran 4mg Inj) 08:00 Pantoprazole 40mg Inj PHA 02/22/25 Complete (Protonix 40mg Inj 08:00 Lipase LAB 02/22/25 Complete 07:43 Lidocaine Hcl 2% PHA 02/22/25 Complete Viscous (Lidocaine Hcl 08:30 Mag/Alum/Simeth 30ml PHA 02/22/25 Complete (Maalox Plus 30ml) 08:30 Ct Abdomen/Pelvis W/O CT 02/22/25 Resulted Contrast 09:58 Current Medications Medications (Trade) Dose Ordered Sig/Luiz Route PRN Reason Start Time Stop Time Status Last Admin Dose Admin Al Hydroxide/Mg Hydroxide (MAALox PLUS 30ML) 30 ml ONCE ONCE PO 02/22/25 08:30 02/22/25 08:31 DC 02/22/25 08:29 Lactated Ringer's 1,000 ml @ 0 mls/hr ONCE ONCE IV 02/22/25 08:00 02/22/25 08:01 DC 02/22/25 08:30 Lidocaine HCl (Lidocaine HCl 2% Viscous) 10 ml ONCE ONCE PO 02/22/25 08:30 02/22/25 08:31 DC 02/22/25 08:29 Ondansetron HCl (zoFRAN 4MG INJ) 4 mg ONCE ONCE IVP 02/22/25 08:00 02/22/25 08:01 DC 02/22/25 08:30 Pantoprazole Sodium (PROTonix 40MG INJ) 40 mg ONCE ONCE IVP 02/22/25 08:00 02/22/25 08:01 DC 02/22/25 08:29 Vital Signs Date Time Temp Pulse Resp B/P (MAP) Pulse Ox O2 Delivery O2 Flow Rate FiO2 02/22/25 09:36 63 18 112/65 98 Room Air* 0 21 02/22/25 07:40 98.2 85 16 114/73 100 Room Air 0 DX & DISP Disposition: Discharge Departure Impression: Primary Impression: Gastritis Additional Impression: Peptic ulcer Condition: Stable Scripts Pantoprazole Sodium (Protonix) 40 Mg Ectab 1 TAB PO DAILY for 30 Days, #30 TAB 0 Refills Prov: MALLORIE BEATTY MD 02/22/25 Additional Instructions: FOLLOW-UP WITH PRIMARY CARE PROVIDER IN 1 TO 2 DAYS. TAKE MEDICATIONS DIRECTED HERE IN THE EMERGENCY ROOM. OKAY TO CONTINUE HOME MEDICATIONS UNLESS OTHERWISE DISCUSSED DURING YOUR VISIT IN THE EMERGENCY ROOM TODAY. RETURN TO YOUR NEAREST EMERGENCY ROOM IF SYMPTOMS WORSEN OR IF THERE IS NO IMPROVEMENT. CALL 911 IF YOU NEED IMMEDIATE ASSISTANCE. TAKE TYLENOL [id number] NEEDED AND IF NO CONTRAINDICATIONS ARE PRESENT. INCREASE ORAL HYDRATION. A WOUND CULTURE OR URINE CULTURE WAS ORDERED HERE IN THE EMERGENCY ROOM DEPARTMENT PLEASE FOLLOW-UP WITH PRIMARY CARE PROVIDER AND ADVISE THEM TO GET REPORTS FROM OUR FACILITY. IF YOU HAD ANY BRYAN WRAP/SPLINTS THAT WERE APPLIED HERE, PLEASE DO NOT REMOVE THEM UNTIL YOU SEE YOUR PRIMARY CARE OR SPECIALTY. REFERRALS: Referrals: MASOOD STARKS MD (PCP) Time of Disposition: 10:39 MALLORIE BEATTY MD Feb 22, 2025 08:19
[2025-02-22 08:21] LABS: ASPARTATE AMINOTRANSFERASE 11.0 U/L (10-37); CREATININE 0.6 mg/dL (0.5-1.0); GLOMERULAR FILTR. RATE CALC 122.0 mL/min (>90); GLUCOSE,RANDOM 107.0 mg/dL (70-105); SODIUM SERUM 140.0 mmol/L (136-145); TOTAL PROTEIN, SERUM 8.2 g/dL (6.0-8.3); UREA NITROGEN, BLOOD 14.0 mg/dL (7-18)
[2025-02-22] MEDS: MAG/ALUM/SIMETH 30 ML UDCUP PO ONE (08:29)
[2025-02-22] MEDS: LIDOCAINE HCL 2% VISCOUS 15 ML UDCUP PO ONE (08:29)
[2025-02-22] MEDS: LACTATED RINGERS 1000ML 1,000 ML IV ONE (08:30)
--- NOTE | 2025-02-22 10:30 | HMCIMG ---
EXAM: CT Abdomen and Pelvis Without IV contrast CLINICAL HISTORY: ABD PAIN TECHNIQUE: Axial computed tomography images of the abdomen and pelvis without intravenous contrast. CONTRAST: No IV contrast. COMPARISON: None provided. FINDINGS: LUNG BASES: The lung bases appear clear. No pleural effusions are seen. LIVER: Unremarkable. GALLBLADDER AND BILE DUCTS: The gallbladder appears within normal limits. No radioopaque gallstones are seen. No biliary ductal dilatation is evident. PANCREAS: Unremarkable. SPLEEN: Unremarkable. ADRENAL GLANDS: Unremarkable. KIDNEYS, URETERS, AND BLADDER: The kidneys appear within normal limits. There is no hydronephrosis or hydroureter. No urinary calculi are seen. STOMACH AND BOWEL: Unremarkable appearance of the stomach and bowel. No evidence of bowel obstruction. No evidence suggesting enteritis or colitis. APPENDIX: Normal appendix. PERITONEUM: No free fluid. No free air. LYMPH NODES: No lymphadenopathy is evident. REPRODUCTIVE: Unremarkable as visualized. VASCULATURE: No evidence of abdominal aortic aneurysm. BONES: No aggressive appearing osseous lesion. No acute osseous pathology evident. IMPRESSION: No acute intra-abdominal or pelvic abnormality. /[place]
[2025-02-22] MEDS ORDERED: PANT40TA55 PO (10:39)
[2025-02-22 11:33] VITALS: BP 121/72; PULSE 75; RESP 16; TEMP 98.2; O2SAT 98
== END 2025-02-22 11:36 | disposition home or self-care (01) ==
LOC: EDH 07:36
DX: K29.70 Gastritis, unspecified, without bleeding (principal); K27.9 Peptic ulcer, site unspecified, unspecified as acute or chronic, without hemorrhage or perforation; F41.9 Anxiety disorder, unspecified; E11.9 Type 2 diabetes mellitus without complications; Z79.899 Other long term (current) drug therapy
CPT/HCPCS: 99285; 74176; 96374; 96361; 96375; 80053; 83690; 85025; 81001; 81025; 36415; J7120; J2405; J2470